=== PATIENT | female | born 1950 | race Caucasian/White ===

== ENCOUNTER 2016-06-03 12:04 | Day surgery (SDC) | payer MEDICARE, OTHER ==
[~2016-06-03] VITALS: Ht 157.5 cm; Wt 110.9 kg
== END 2016-06-03 14:43 | disposition home or self-care (01) ==
LOC: RAD.S 12:04 → EDSTATUS 13:00 → SSS 13:00 → RAD.S 13:00
DX: M51.26 Other intervertebral disc displacement, lumbar region (principal); M43.17 Spondylolisthesis, lumbosacral region; M47.817 Spondylosis without myelopathy or radiculopathy, lumbosacral region; M99.83 Other biomechanical lesions of lumbar region; Z88.2 Allergy status to sulfonamides; Z79.899 Other long term (current) drug therapy; Z79.52 Long term (current) use of systemic steroids